=== PATIENT | male | born 1990 | race African-American/Black ===

== ENCOUNTER 2017-06-14 12:11 | Emergency (ER) | payer OTHER ==
[~2017-06-14] VITALS: Ht 5.1 cm; Wt 124.0 kg
[~2017-06-14 12:11] MED LIST: LORTAB 5 OR; NO HOME MEDS
[2017-06-14 13:55] VITALS: BP 128/80
== END 2017-06-14 14:04 | disposition home or self-care (01) | DRG 103 ==
LOC: ED 12:11
DX: R51 Headache (principal); Y04.2XXA Assault by strike against or bumped into by another person, initial encounter; Y93.89 Activity, other specified; Y92.89 Other specified places as the place of occurrence of the external cause; Y99.0 Civilian activity done for income or pay